=== PATIENT | female | born 1960 | race Caucasian/White ===

== ENCOUNTER → 2016-05-05 | Outpatient (CLI) | payer SELFPAY ==
--- NOTE | 2016-05-05 13:26 | XR ---
EXAMINATION TYPE: XR KUB DATE OF EXAM: 05/05/2016 1:12 PM COMPARISON: 05/24/2015 HISTORY: Pain, follow-up renal stone TECHNIQUE: One view abdominal series FINDINGS: The osseous structures are intact. The bowel gas pattern is nonspecific. Extensive retained fecal de bris. Right kidney: There remains a calcification overlying the right renal outline measuring 4 mm. Stable in position a nd size relative to the previous exam. Left kidney: There are 2 punctate 2 mm calcifications overlying the upper pole region of the left kidney. Pelvis: There are stable appearing calcifications in the pelvis appear vascular. IMPRESSION: 1. Nonspecific abdomen. 2. Stable 4 mm right renal calculus.
== END | disposition home or self-care (01) ==
LOC: RADXRMAIN 12:57
PROVIDERS: ATTEND Urology
DX: N20.0 Calculus of kidney (principal)
CPT/HCPCS: 74000

== ENCOUNTER 2016-11-20 14:32 | Observation (INO) | payer OTHER ==
[2016-11-20] MEDS ORDERED: LORazepam 2 MG/ML SYRINGE IV STA (15:10)
--- NOTE | 2016-11-20 15:14 | ED ---
General Adult HPI - General Source: patient, family, EMS, RN notes reviewed Mode of arrival: EMS Limitations: altered mental status <Jeffrey Gann - Last Filed: 11/20/16 16:42> <Rodger Khan - Last Filed: 11/20/16 18:51> - General Chief complaint: Altered Mental Status Stated complaint: Short Term Memory Loss Time Seen by Provider: 11/20/16 15:04 - History of Present Illness Initial comments: Patient is a pleasant 56-year-old female presenting to the emergency department complaining of memory problems. Patient states she does not recall majority of the day. No history of similar symptoms previously. Patient does admit to being under increased stress recently. Daughter adds patient was last seen well around 1220. When she spoke with her on the phone patient was answering questions similar to today. Normally patient does know what year it is. No headaches. No isolated area of weakness. (Jeffrey Gann) - Related Data Home Medications Medication Instructions Recorded Confirmed Biotin 5 mg PO DAILY 11/20/16 11/20/16 Estrogen,Con/M-Progest Acet 0.5 tab PO DAILY 11/20/16 11/20/16 [Prempro 0.3 mg-1.5 mg Tablet] Fluticasone Nasal [place] [Flonase 2 spr EA NOSTRIL DAILY 11/20/16 11/20/16 Nasal [place]] Montelukast [Singulair] 10 mg PO DAILY 11/20/16 11/20/16 Ubidecarenone [Co Q-10] 100 mg PO DAILY 11/20/16 11/20/16 Allergies Allergy/AdvReac Type Severity Reaction Status Date / Time No Known Allergies Allergy Verified 11/20/16 14:41 Review of Systems ROS Other: All systems not noted in ROS Statement are negative. Constitutional: Denies: fever Eyes: Denies: eye pain ENT: Denies: ear pain Respiratory: Denies: cough Cardiovascular: Denies: chest pain Endocrine: Denies: fatigue Gastrointestinal: Denies: abdominal pain Genitourinary: Denies: dysuria Musculoskeletal: Denies: back pain Skin: Denies: rash Neurological: Denies: headache, weakness <Jeffrey Gann - Last Filed: 11/20/16 16:42> ROS Other: All systems not noted in ROS Statement are negative. <Rodger Khan - Last Filed: 11/20/16 18:51> ROS Statement: Those systems with pertinent positive or pertinent negative responses have been documented in the HPI. Past Medical History Past Medical History: Hypertension History of Any Multi-Drug Resistant Organisms: None Reported Past Surgical History: Bladder Surgery Past Psychological History: No Psychological Hx Reported Smoking Status: Current every day smoker Past Alcohol Use History: Occasional Past Drug Use History: None Reported <Jeffrey Gann - Last Filed: 11/20/16 16:42> General Exam Limitations: altered mental status General appearance: alert, in no apparent distress Head exam: Present: atraumatic, normocephalic Eye exam: Present: normal appearance, PERRL, EOMI. Absent: nystagmus ENT exam: Present: normal oropharynx Neck exam: Present: normal inspection Respiratory exam: Present: normal lung sounds bilaterally Cardiovascular Exam: Present: regular rate, normal rhythm GI/Abdominal exam: Present: soft. Absent: tenderness Extremities exam: Present: normal inspection. Absent: pedal edema, calf tenderness Neurological exam: Present: alert, CN II-XII intact. Absent: motor sensory deficit Expanded Patient oriented to: Present: person, place. Absent: time (Patient does know that is the last day of October however states the year is 2015) Speech: Present: fluid speech Cranial nerves: EOM's Intact: Normal, Facial Sensation: Normal Cerebellar function: Finger to Nose: Normal Sensory exam: Upper Extremity Light Touch: Normal, Lower Extremity Light Touch: Normal Motor strength exam: RUE: 5, LUE: 5, RLE: 5, LLE: 5 Psychiatric exam: Present: normal affect, normal mood Skin exam: Present: normal color <Jeffrey Gann Last Filed: 11/20/16 16:42> EKG Findings - EKG Comments: EKG Findings:: Normal sinus rhythm at 70. LA 1. Tourette's 90. QT 378. QTC 408. Normal axis. Normal QRS. Nonspecific T waves. <Jeffrey Gann Last Filed: 11/20/16 16:42> Medical Decision Making - Lab Data Result diagrams: 11/20/16 14:54 11/20/16 14:54 - Radiology Data Radiology results: image reviewed (Computed tomography scan shows no acute cranial process. Two-view chest x-ray shows abnormal appearance of upper mediastinum.) <Jeffrey Gann Last Filed: 11/20/16 16:42> - Lab Data Result diagrams: 11/20/16 14:54 11/20/16 14:54 <Rodger Khan - Last Filed: 11/20/16 18:51> - Medical Decision Making 56 yo female signed out from the previous physician at shift change. Patient presented for episode of confusion and amnesia. She is currently going through a divorce. She is unable to recall the events today. Was unable to recall speaking with her daughter which occurred at 1220. This was when she was last seen normal. She had no focal neurological findings on examination. I did reevaluate the patient multiple times while in the emergency department she did not develop any neurological findings. She continued to have difficulty recalling these events but she was beginning to remember. Chest x-ray did show wide mediastinum. CT was obtained at the time of sign out. 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 I did discuss with cardiothoracic surgery on-call Dr. Skelton and there is no urgent need for evaluation. Patient may follow-up as an outpatient regarding this finding. Given the measurement of 3.5 cm he did not believe this was an aneurysm by definition. CT of the head showed no acute intracranial process. Laboratory studies including CBC, CMP, urinalysis and urine drug screen are unremarkable. Patient will be placed in observation for neurology evaluation. Patient did receive an aspirin in the emergency department. Diagnosis: Confusion and amnesia. (Rodger Khan) - Lab Data Lab Results 11/20/16 11/20/16 11/20/16 Range/Units 14:54 14:54 14:54 WBC 7.0 (3.8-10.6) k/uL RBC 4.17 (3.80-5.40) m/uL Hgb 13.6 (11.4-16.0) gm/dL Hct 39.8 (34.0-46.0) % MCV 95.4 (80.0-100.0) fL MCH 32.7 (25.0-35.0) pg MCHC 34.2 (31.0-37.0) g/dL RDW 13.0 (11.5-15.5) % Plt Count 234 (150-450) k/uL Neutrophils % 64 % Lymphocytes % 26 % Monocytes % 7 % Eosinophils % 1 % Basophils % 0 % Neutrophils # 4.5 (1.3-7.7) k/uL Lymphocytes # 1.8 (1.0-4.8) k/uL Monocytes # 0.5 (0-1.0) k/uL Eosinophils # 0.1 (0-0.7) k/uL Basophils # 0.0 (0-0.2) k/uL PT (9.0-12.0) sec INR (<1.2) APTT (22.0-30.0) sec Sodium 141 (137-145) mmol/L Potassium 4.0 (3.5-5.1) mmol/L Chloride 106 (98-107) mmol/L Carbon Dioxide 24 (22-30) mmol/L Anion Gap 11 mmol/L BUN 19 H (7-17) mg/dL Creatinine 0.80 (0.52-1.04) mg/dL Est GFR (MDRD) Af Amer >60 (>60 ml/min/1.73 sqM) Est GFR (MDRD) Non-Af >60 (>60 ml/min/1.73 sqM) Glucose 70 L (74-99) mg/dL Calcium 9.3 (8.4-10.2) mg/dL Total Bilirubin 0.6 (0.2-1.3) mg/dL AST 31 (14-36) U/L ALT 34 (9-52) U/L Alkaline Phosphatase 98 (38-126) U/L Total Creatine Kinase 364 H (30-135) U/L CK-MB (CK-2) 3.5 H* (0.0-2.4) ng/mL CK-MB (CK-2) Rel Index 1.0 Troponin I <0.012 (0.000-0.034) ng/mL Total Protein 7.0 (6.3-8.2) g/dL Albumin 4.5 (3.5-5.0) g/dL Urine Color Urine Appearance (Clear) Urine pH (5.0-8.0) Ur Specific [place] (1.001-1.035) Urine Protein (Negative) Urine Glucose (UA) (Negative) Urine Ketones (Negative) Urine Blood (Negative) Urine Nitrite (Negative) Urine Bilirubin (Negative) Urine Urobilinogen (<2.0) mg/dL Ur Leukocyte Esterase (Negative) Urine Opiates Screen (NotDetected) Ur Oxycodone Screen (NotDetected) Urine Methadone Screen (NotDetected) Ur Propoxyphene Screen (NotDetected) Ur Barbiturates Screen (NotDetected) U Tricyclic Antidepress (NotDetected) Ur Phencyclidine Scrn (NotDetected) Ur Amphetamines Screen (NotDetected) U Methamphetamines Scrn (NotDetected) U Benzodiazepines Scrn (NotDetected) Urine Cocaine Screen (NotDetected) U Marijuana (THC) Screen (NotDetected) 11/20/16 11/20/16 Range/Units 14:54 14:54 WBC (3.8-10.6) k/uL RBC (3.80-5.40) m/uL Hgb (11.4-16.0) gm/dL Hct (34.0-46.0) % MCV (80.0-100.0) fL MCH (25.0-35.0) pg MCHC (31.0-37.0) g/dL RDW (11.5-15.5) % Plt Count (150-450) k/uL Neutrophils % % Lymphocytes % % Monocytes % % Eosinophils % % Basophils % % Neutrophils # (1.3-7.7) k/uL Lymphocytes # (1.0-4.8) k/uL Monocytes # (0-1.0) k/uL Eosinophils # (0-0.7) k/uL Basophils # (0-0.2) k/uL PT 10.4 (9.0-12.0) sec INR 1.0 (<1.2) APTT 24.0 (22.0-30.0) sec Sodium (137-145) mmol/L Potassium (3.5-5.1) mmol/L Chloride (98-107) mmol/L Carbon Dioxide (22-30) mmol/L Anion Gap mmol/L BUN (7-17) mg/dL Creatinine (0.52-1.04) mg/dL Est GFR (MDRD) Af Amer (>60 ml/min/1.73 sqM) Est GFR (MDRD) Non-Af (>60 ml/min/1.73 sqM) Glucose (74-99) mg/dL Calcium (8.4-10.2) mg/dL Total Bilirubin (0.2-1.3) mg/dL AST (14-36) U/L ALT (9-52) U/L Alkaline Phosphatase (38-126) U/L Total Creatine Kinase (30-135) U/L CK-MB (CK-2) (0.0-2.4) ng/mL CK-MB (CK-2) Rel Index Troponin I (0.000-0.034) ng/mL Total Protein (6.3-8.2) g/dL Albumin (3.5-5.0) g/dL Urine Color Colorless Urine Appearance Clear (Clear) Urine pH 6.5 (5.0-8.0) Ur Specific [place] 1.001 (1.001-1.035) Urine Protein Negative (Negative) Urine Glucose (UA) Negative (Negative) Urine Ketones Negative (Negative) Urine Blood Negative (Negative) Urine Nitrite Negative (Negative) Urine Bilirubin Negative (Negative) Urine Urobilinogen <2.0 (<2.0) mg/dL Ur Leukocyte Esterase Negative (Negative) Urine Opiates Screen Not Detected (NotDetected) Ur Oxycodone Screen Not Detected (NotDetected) Urine Methadone Screen Not Detected (NotDetected) Ur Propoxyphene Screen Not Detected (NotDetected) Ur Barbiturates Screen Not Detected (NotDetected) U Tricyclic Antidepress Not Detected (NotDetected) Ur Phencyclidine Scrn Not Detected (NotDetected) Ur Amphetamines Screen Not Detected (NotDetected) U Methamphetamines Scrn Not Detected (NotDetected) U Benzodiazepines Scrn Not Detected (NotDetected) Urine Cocaine Screen Not Detected (NotDetected) U Marijuana (THC) Screen Not Detected (NotDetected) Disposition <Jeffrey Gann - Last Filed: 11/20/16 16:42> Decision to Admit Reason: Admit from EC Decision Date: 11/20/16 Decision Time: 16:50 <Rodger Khan - Last Filed: 11/20/16 18:51> Clinical Impression: Altered mental status Disposition: ADMITTED IP TO THIS [facility] Condition: Stable Referrals: Kasey Garcia MD [Primary Care Provider] - 1-2 days
[2016-11-20 15:23] LABS: Appearance,Urine Clear (Clear); Bilirubin,Urine Negative (Negative); Glucose,Urine (UA) Negative (Negative); Ketones,Urine Negative (Negative); Leukocyte Esterase,Urine Negative (Negative); Nitrite,Urine Negative (Negative); PH, Urine 6.5 (5.0-8.0); Protein,Urine Negative (Negative); Specific Gravity,Urine 1.001 (1.001-1.035); UA Billing (MACRO vs. MICRO) CHEM; Urobilinogen,Urine <2.0 mg/dL (<2.0)
[2016-11-20 15:25] LABS: Basophils % (A) 0 %; CH 31.8; CHCM 33.5; Eosinophils # (A) 0.1 k/uL (0-0.7); Eosinophils % (A) 1 %; HCT 39.8 % (34.0-46.0); HDW 2.19; HGB 13.6 gm/dL (11.4-16.0); Luc # (Auto) 0.13; Luc % (Auto) 2; Lymphocytes # (A) 1.8 k/uL (1.0-4.8); Lymphocytes % (A) 26 %; MCH 32.7 pg (25.0-35.0); MCHC 34.2 g/dL (31.0-37.0); MCV 95.4 fL (80.0-100.0); Mean Platelet Volume 7.1; Monocytes # (A) 0.5 k/uL (0-1.0); Monocytes % (A) 7 %; Neutrophils # (A) 4.5 k/uL (1.3-7.7); Neutrophils % (A) 64 %; RBC 4.17 m/uL (3.80-5.40); WBC (Perox) 6.99
[2016-11-20 15:31] LABS: ALT 34 U/L (9-52); AST 31 U/L (14-36); Alkaline Phosphatase 98 U/L (38-126); Anion Gap 11 mmol/L; Blood Urea Nitrogen 19 mg/dL (7-17); Calcium 9.3 mg/dL (8.4-10.2); Carbon Dioxide 24 mmol/L (22-30); Chloride 106 mmol/L (98-107); Glucose 70 mg/dL (74-99); Non-African American GFR(MDRD) >60 (>60 ml/min/1.73 sqM); Sodium 141 mmol/L (137-145); Total Bilirubin 0.6 mg/dL (0.2-1.3)
--- NOTE | 2016-11-20 15:37 | CT ---
EXAMINATION TYPE: CT brain wo con DATE OF EXAM: 11/20/2016 COMPARISON: NONE HISTORY: Short term memory loss. CT DLP: 993.2 mGycm Automated exposure control for dose reduction was used. FINDINGS: Central structures are midline. There is no evidence of hydrocephalus. No acute focal lesion, mass ef fect or midline shift is seen. I do not see evidence of intracranial blood. There has been a previous Coldwell Asael procedure on the right. There is been a partial anterior ethmo idectomy. The mastoid air cells are clear. IMPRESSION: 1. NO ACUTE INTRACRANIAL ABNORMALITY. 2. POSTSURGICAL CHANGE.
--- NOTE | 2016-11-20 15:38 | XR ---
EXAMINATION TYPE: XR chest 2V DATE OF EXAM: 11/20/2016 COMPARISON: NONE TECHNIQUE: PA and lateral views submitted. HISTORY: Altered mental status. FINDINGS: The lungs are clear and there is no pneumothorax, pleural effusion, or focal pneumonia. There is ab normal appearance of the upper mediastinum. Degenerative change change of the spine. IMPRESSION: 1. Abnormal appearance of the upper mediastinum rate may reflect a right-sided aortic arch with ectas ia of the vasculature on the left. Recommend CT of the chest for further evaluation. Could not exclud e adenopathy or mass without CAT scan. 2. Correlate for COPD
[2016-11-20 15:40] LABS: Prothrombin Time 10.4 sec (9.0-12.0)
[2016-11-20 15:44] LABS: Creatine Kinase 364 U/L (30-135)
[2016-11-20 15:56] LABS: Troponin I <0.012 ng/mL (0.000-0.034)
[2016-11-20 15:58] LABS: Creatine Kinase MB 3.5 ng/mL (0.0-2.4)
[2016-11-20] MEDS ORDERED: RX INFO: IV CONTRAST WAS GIVEN 1 EACH MISC MISCELLANE PRN (16:30)
[2016-11-20] MEDS ORDERED: ASPIRIN 325 MG TAB PO STA (17:06)
--- NOTE | 2016-11-20 17:21 | CT ---
EXAMINATION TYPE: CT chest w con DATE OF EXAM: 11/20/2016 COMPARISON: NONE HISTORY: Abnormal chest xray. CT DLP: 590.00 mGycm Automated exposure control for dose reduction was used. CONTRAST: CT scan of the chest is performed with IV Contrast, patient injected with 100 mL of Omnipaque 300. FINDINGS: There is a right-sided aortic arch. There is mild aneurysm of the aortic arch involving the proximal descending thoracic aorta. This measures 3.5 cm. There is aberrant left subclavian artery which is po sterior to the trachea. There is no evidence of aortic dissection. The lungs are clear of consolidation. There is no mediastinal adenopathy. Heart size is normal. There is no pleural effusion. There is no evidence of a pulmonary mass. The bony thorax appears intact. 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 No dissection.
[2016-11-20] MEDS ORDERED: NALOXONE 0.4 MG/ML 1 ML VIAL IV PRN (18:47)
[2016-11-20] MEDS ORDERED: ACETAMINOPHEN TAB 325 MG TAB PO PRN (18:47)
[2016-11-20] MEDS ORDERED: ONDANSETRON 4 MG/2 ML VIAL IVP PRN (18:47)
[2016-11-20] MEDS ORDERED: HYDROCHLOROTHIAZIDE 25 MG TAB PO SCH (19:00)
[2016-11-20 20:31] LABS: Glucose,Whole Blood 96 mg/dL (75-99)
[2016-11-20] MEDS: HYDROCHLOROTHIAZIDE 25 MG TAB PO SCH (23:42)
[2016-11-21] MEDS: ASPIRIN 81 MG PO SCH (08:37)
[2016-11-21] MEDS: HYDROCHLOROTHIAZIDE 25 MG TAB PO SCH ×2 (08:37→19:57)
[2016-11-21] MEDS: FLUTICASONE 50MCG/SPRAY NASAL 16GM EA NOSTRIL SCH (08:38)
[2016-11-21] MEDS: ENOXAPARIN 40 MG/0.4 ML SYRINGE SQ SCH (08:38)
[2016-11-21] MEDS ORDERED: ESTROGEN CON PO SCH (09:00)
[2016-11-21] MEDS ORDERED: MONTELUKAST 10 MG TAB PO SCH (09:00)
[2016-11-21] MEDS ORDERED: M PROGEST ACET PO SCH (09:00)
[2016-11-21] MEDS ORDERED: ASPIRIN 325 MG TAB PO SCH (09:00)
[2016-11-21 13:31] LABS: Cholesterol 198 mg/dL (<200); HDL Cholesterol 101 mg/dL (40-60)
--- NOTE | 2016-11-21 14:07 | US ---
EXAMINATION TYPE: US carotid duplex BILAT DATE OF EXAM: 11/21/2016 COMPARISON: NONE CLINICAL HISTORY: tia. TIA EXAM MEASUREMENTS: RIGHT: Peak Systolic Velocity (PSV) cm/sec ----- Right CCA: 58.1 ----- Right ICA: 69.7 ----- Right ECA: 78.2 ICA/CCA ratio: 1.2 RIGHT: End Diastole cm/sec ----- Right CCA: 25.8 ----- Right ICA: 35.4 ----- Right ECA: 23.6 LEFT: Peak Systolic Velocity (PSV) cm/sec ----- Left CCA: 62.5 ----- Left ICA: 66.0 ----- Left ECA: 88.1 ICA/CCA ratio: 1.1 LEFT: End Diastole cm/sec ----- Left CCA: 24.1 ----- Left ICA: 31.7 ----- Left ECA: 24.2 VERTEBRALS (direction of flow): Right Vertebral: Antegrade Left Vertebral: Antegrade No elevated velocities, no significant stenosis. IMPRESSION: 1. No significant hemodynamic stenosis. 2. Intimal thickening bilaterally small focal areas of plaque.
--- NOTE | 2016-11-21 20:28 | P.HPIM ---
History of Present Illness H&P Date: 11/20/16 Chief Complaint: Acute mental status changes/amnesia This is a 56-year-old female patient of Dr. Kasey Garcia who presented to the emergency department with mental status changes/memory problems. Patient does not recall a good portion of the day. Patient remembers sporadic events but does not remember the sequence of events throughout the day. States she remembers getting up but can't remember if she had coffee, does not recall going to work out or what she did while she was there. Acknowledges being under increased stress recently, daughter at the bedside who lives with her, states last time that she appeared well was 1220 this afternoon. Review of Systems GEN.: [None] EYES: [None] HEENT: [None] NECK: [None] RESPIRATORY: [None] CARDIOVASCULAR: [None] GASTROINTESTINAL: [None] GENITOURINARY: [None] MUSCULOSKELETAL: [None] LYMPHATICS: [None] HEMATOLOGICAL: [None] PSYCHIATRY: [None] NEUROLOGICAL: [None] Past Medical History Past Medical History: Hypertension History of Any Multi-Drug Resistant Organisms: None Reported Past Surgical History: Bladder Surgery Additional Past Surgical History / Comment(s): bladder sling in september 2016, tummy lettyck Past Anesthesia/Blood Transfusion Reactions: No Reported Reaction Past Psychological History: No Psychological Hx Reported Smoking Status: Never smoker Past Alcohol Use History: Occasional Past Drug Use History: None Reported - Past Family History Mother Family Medical History: No Reported History Father Additional Family Medical History / Comment(s): ALS, FUCHS EYE DISEASE Sister(s) Family Medical History: No Reported History Daughter(s) Family Medical History: Thyroid Disorder Medications and Allergies Home Medications Medication Instructions Recorded Confirmed Type Biotin 5 mg PO DAILY 11/20/16 11/20/16 History Estrogen,Con/M-Progest Acet 0.5 tab PO DAILY 11/20/16 11/20/16 History [Prempro 0.3 mg-1.5 mg Tablet] Fluticasone Nasal [place] [Flonase 2 spr EA NOSTRIL DAILY 11/20/16 11/20/16 History Nasal [place]] Montelukast [Singulair] 10 mg PO DAILY 11/20/16 11/20/16 History Ubidecarenone [Co Q-10] 100 mg PO DAILY 11/20/16 11/20/16 History Allergies Allergy/AdvReac Type Severity Reaction Status Date / Time house dust mite AdvReac Cough Verified 11/20/16 19:49 mold AdvReac Cough Verified 11/20/16 19:49 yeast, dried AdvReac Cough Verified 11/20/16 19:49 Physical Exam Vitals: Vital Signs Temp Pulse Pulse Resp BP BP Pulse Ox 11/20/16 20:00 98.2 F 64 18 152/101 98 11/20/16 19:18 97.4 F L 68 17 116/102 99 11/20/16 18:35 80 17 157/109 99 11/20/16 17:13 70 17 153/106 99 11/20/16 15:33 69 17 169/99 100 11/20/16 14:34 97.6 F 73 18 161/96 100 Intake and Output 11/20/16 11/20/16 11/20/16 06:59 14:59 22:59 Other: Voiding Method Toilet Weight 63.503 kg Patient Weight 11/21/16 06:59 Weight 63.503 kg VITAL SIGNS. Temperature 98.2, pulse 64, respiratory rate 18, blood pressure 152/101, oxygen saturation 98% on room air. BMI noted] GENERAL: [Average built, sitting up, comfortable]. EYES: [Pupils equal. Conjunctiva katia]l. HEENT: [External appearance of nose and ears normal, oral cavity grossly normal] . NECK: [JVD not raised; masses not palpable]. HEART: [First and second heart sounds are normal; no edema]. LUNGS:[ Respiratory rate normal; clear to auscultation]. ABDOMEN: [Soft, nontender, liver spleen not palpable, no masses palpable]. LYMPHATICS: [No lymph nodes palpable in the axilla and neck]. PSYCH: [Alert and oriented x3; mood and affect katia]l. NEUROLOGICAL: [Cranial nerves grossly intact; no facial asymmetry, power and sensation grossly intact]. Results CBC & Chem 7: 11/20/16 14:54 11/20/16 14:54 Labs: Abnormal Lab Results - Last 24 Hours (Table) 11/20/16 11/20/16 Range/Units 14:54 14:54 BUN 19 H (7-17) mg/dL Glucose 70 L (74-99) mg/dL Total Creatine Kinase 364 H (30-135) U/L CK-MB (CK-2) 3.5 H* (0.0-2.4) ng/mL Thrombosis Risk Factor Assmnt - Choose All That Apply Each Factor Represents 1 point: Age 41-60 years Other Risk Factors: No Other congenital or acquired thrombophilia - If yes, enter type in comment: No Thrombosis Risk Factor Assessment Total Risk Factor Score: 1 Thrombosis Risk Factor Assessment Level: Low Risk Assessment and Plan Plan: ASSESSMENT: -Altered mental status in a patient who has no prior history of memory troubles -Proximal descending thoracic aortic aneurysm measuring 3.5 cm in a patient who has no evidence of aortic dissection or any pain. -Essential hypertension, uncontrolled -Anxiety not otherwise specified -Seasonal ALLERGIES PLAN: Home medications reordered, neuro checks every 4 hours, telemetry monitoring. neurology consulted plan of care discussed at the bedside in detail with both daughters and the patient and they are in agreement with the current plan of care. We will continue to monitor closely PROCEDURES NURSE STATEMENT: Patient was seen and examined by nurse practitioner Mary Ann Ospina in all elements of the case were discussed with attending Dr. Almeida.
--- NOTE | 2016-11-21 21:06 | P.PN ---
Progress Note - Text Date of service: 11/21/2016 Presenting complaint: Episodes of forgetfulness Interval history this is a patient who presented with several episodes of forgetfulness yesterday and could not put things together poorly. On further questioning patient is rather stressful does not sleep well she is very active and doesn't sleep much. Patient does feel tired and exhausted all the time. Patient had denied any change in vision no focal symptoms, no lateralized weakness no difficulty in swallowing,. Current medications reviewed and include aspirin Review of system is done for constitutional,, cardiovascular, pulmonary, GI, neurological. Relevant finding as above. VITAL SIGNS: 98.1, 58, 16, 145-98, 98% room air GENERAL APPEARANCE: Average build. Sitting up in chair, rather anxious appearing, otherwise comfortable. EYES: Pupils equal. Conjunctiva normal. NECK: JVD not raised. Mass not palpable. RESPIRATORY: Respiratory effort normal. Lungs clear to auscultation. CARDIOVASCULAR: First and second sounds normal. No edema. ABDOMEN: Soft. Liver and spleen not palpable. No tenderness. No mass palpable. PSYCHIATRY: Alert and oriented x3. Mood and affect anxious appearing. Investigations: CT chest shows 3.5 cm aneurysm of the Aorta arch Assessment: -Muscle of transient global amnesia which is more flaco to a TIA with the same risk factor modification in this case patient has hypertension and patient had told me that she stopped taking her diuretic for the same that his hydrochlorothiazide. -Anxiety disorder not otherwise specified somewhat uncontrolled -Significant sleep deprivation leading to tiredness and to certain degree could be a contribution to her symptoms. Plan: Neurology was consulted. EEG is being ordered by them. I did order 2-D echo and a carotid Doppler. Lipid profile has been ordered. Patient was told to follow mindfulness and improve her sleep hygiene care was discussed at length with the patient and daughter. And also with Harman from neurology. Total time spent was about 40 minutes including 30 minutes of discussion
--- NOTE | 2016-11-22 01:08 | P.CNNES ---
History of Present Illness Consult date: 11/21/16 Requesting physician: Rodger Khan Reason for Consult: Amnesia/memory loss Chief complaint: amnesia/memory loss History of Present Illness: Patient is a 56-year-old female is being consulted on by neurology for amnesia/ memory loss. Patient experienced an episode of memory loss that encompassed half of her day yesterday where she could not connect events, prior conversations, interactions with family and loved ones and prior personal activities. Memory loss was confined to the one day. Patient has been under significant psychological and emotional stress as result of a recent divorce that has been characterized as quite difficult. Patient is also under further stressors as a result of numerous family functions and physical demands. Patient does have a history of a very rigid and structured home. On contact, the patient was supine in bed resting and in no acute distress with her daughter at the bedside. Patient is on Lexapro which she admits she takes intermittently. She also admits that she restarted her exercise regimen within the last several days and expressed difficulty with her physical appearance. Patient also has not been taking her hypertension related medications as prescribed as well. Patient denied any neurological symptoms, weakness, difficulty swallowing, numbness and tingling, diplopia or vertigo. Patient did appear somewhat anxious. Review of Systems All systems not previously noted in HPI or negative. Past Medical History Past Medical History: Hypertension History of Any Multi-Drug Resistant Organisms: None Reported Past Surgical History: Bladder Surgery Additional Past Surgical History / Comment(s): bladder sling in september 2016, tummy lettyck Past Anesthesia/Blood Transfusion Reactions: No Reported Reaction Past Psychological History: No Psychological Hx Reported, Depression Smoking Status: Never smoker Past Alcohol Use History: Occasional Past Drug Use History: None Reported Additional History: history of depression. - Past Family History Mother Family Medical History: No Reported History Father Additional Family Medical History / Comment(s): ALS, FUCHS EYE DISEASE Sister(s) Family Medical History: No Reported History Daughter(s) Family Medical History: Thyroid Disorder Medications and Allergies Home Medications Medication Instructions Recorded Confirmed Type Biotin 5 mg PO DAILY 11/20/16 11/20/16 History Estrogen,Con/M-Progest Acet 0.5 tab PO DAILY 11/20/16 11/20/16 History [Prempro 0.3 mg-1.5 mg Tablet] Fluticasone Nasal [place] [Flonase 2 spr EA NOSTRIL DAILY 11/20/16 11/20/16 History Nasal [place]] Montelukast [Singulair] 10 mg PO DAILY 11/20/16 11/20/16 History Ubidecarenone [Co Q-10] 100 mg PO DAILY 11/20/16 11/20/16 History Allergies Allergy/AdvReac Type Severity Reaction Status Date / Time house dust mite AdvReac Cough Verified 11/20/16 19:49 mold AdvReac Cough Verified 11/20/16 19:49 yeast, dried AdvReac Cough Verified 11/20/16 19:49 Physical Examination - Vital Signs Vital Signs: Vital Signs Temp Pulse Resp BP Pulse Ox 11/21/16 23:32 70 18 113/75 98 11/21/16 19:59 18 11/21/16 19:39 98.1 F 58 L 18 145/98 98 11/21/16 16:00 69 16 11/21/16 15:57 98.1 F 69 16 139/95 96 11/21/16 12:00 98.4 F 72 18 118/74 97 11/21/16 08:00 64 16 11/21/16 07:55 98.3 F 64 16 122/96 98 11/21/16 04:00 98 F 56 L 18 132/90 99 11/21/16 03:28 18 Intake and Output 11/21/16 11/21/16 11/22/16 14:59 22:59 06:59 Intake Total 476 440 Balance 476 440 Intake: Oral 476 440 Other: Voiding Method Toilet Toilet # Voids 3 1 Constitutional: AOx3, cooperative HEENT: NC/AT, no facial asymmetry is seen. Throat: Supple, no masses Respiratory: No increased work of breathing Cardiac: Regular rate and Rhythm GI: non tender, non distended Musculoskeletal: Brake Specialist strengths are equal bilaterally 5/5, Lower extremity strengths are equal bilaterally at 5/5. Neurological: CN II-XII in tact, patient was AOx3, speech and language are normal, no unilateralizing weakness, no seizure activity note on physical exam. Sensation was normal. Integementary: no rash, no erythema Psychiatric: mood and affect appropriate Results - Laboratory Findings CBC and BMP: 11/20/16 14:54 11/20/16 14:54 Abnormal Lab Findings: Abnormal Labs 11/20/16 11/20/16 11/20/16 14:54 14:54 14:54 BUN 19 H Glucose 70 L Total Creatine Kinase 364 H CK-MB (CK-2) 3.5 H* HDL Cholesterol 101 H - Diagnostic Findings Additional findings: CT brain was negative with the exception of an ethmoid sinus related procedure. No acute process found. Carotid Doppler noted no hemodynamically significant stenosis. EEG will be ordered MRI of the brain with and without contrast will also be ordered Assessment and Plan (1) Transient global amnesia Status: Acute (2) Altered mental status Status: Acute Plan: transient global amnesia/rule out TIA: Patient's symptoms are consistent with both TIA and transient global amnesia. Patient does have multiple stressors, has isolated loss of time and memory. Patient has had significant life related events related to her divorce, daughter graduating from medical school, desire to improve her physical appearance. At this time the patient's symptoms do appear more related to TGA versus TIA, however we will request an MRI of the brain with and without contrast and an EEG. As noted previously the CT of the brain as well as the carotid Doppler study were all unremarkable for patient's symptoms. Patient will continue 81 mg aspirin. Lipid panel: only abnormal was elevated HDL at 101. Additional lab work ordered to include:TSH: Folate, B12, serum homocystine , vitamin D levels to investigate any other underlying etiology. status: Neurology will continue to follow provide further updates as needed or warranted. Contact our office with any further questions. I discussed the patient's pertinent medical information with Dr. Richardson. He agrees with the plan of care as implemented.
[2016-11-22] MEDS: HYDROCHLOROTHIAZIDE 25 MG TAB PO SCH (08:44)
[2016-11-22] MEDS: FLUTICASONE 50MCG/SPRAY NASAL 16GM EA NOSTRIL SCH (08:44)
[2016-11-22] MEDS: ENOXAPARIN 40 MG/0.4 ML SYRINGE SQ SCH ×2 (08:45→08:46)
[2016-11-22] MEDS: ASPIRIN 81 MG PO SCH (08:45)
--- NOTE | 2016-11-22 09:14 | ECHOF ---
Referral Reason:tia MEASUREMENTS -------- HEIGHT: 157.5 cm WEIGHT: 63.5 kg BP: 122/96 RVIDd: 2.1 cm (< 3.3) IVSd: 0.9 cm (0.6 - 1.1) LVIDd: 4.1 cm (3.9 - 5.3) LVPWd: 0.9 cm (0.6 - 1.1) IVSs: 1.1 cm LVIDs: 3.2 cm LVPWs: 1.0 cm Ao Diam: 2.8 cm (2.0 - 3.7) AV Cusp: 1.8 cm (1.5 - 2.6) LA Diam: 2.4 cm (2.7 - 3.8) MV EXCURSION: 19.848 mm (> 18.000) MV EF SLOPE: 125 mm/s (70 - 150) EPSS: 0.6 cm MV E Jake: 0.67 m/s MV DecT: 250 ms MV A Jake: 0.86 m/s MV E/A Ratio: 0.79 RAP: 5.00 mmHg RVSP: 9.94 mmHg FINDINGS -------- Sinus rhythm. This was a technically adequate study. Overall left ventricular systolic function is normal with, an EF between 55 - 60 %. The right ventricle is normal in size and function. Normal LA size by volume 22+/-6 ml/m2. The right atrium is normal in size. Aortic valve is trileaflet and is mildly thickened. There is no evidence of aortic regurgitation. There is no evidence of aortic stenosis. The mitral valve leaflets are mildly thickened. There is trace mitral regurgitation. Trace tricuspid regurgitation present. There is no evidence of pulmonary hypertension. The right ventricular systolic pressure, as measured by Doppler, is 9.94mmHg. The pulmonic valve was not well visualized. The aortic root size is normal. Normal inferior vena cava with normal inspiratory collapse consistent with estimated right atrial pressure of 5 mmHg. The pericardium is normal. There is no pericardial effusion. CONCLUSIONS -------- 1. Sinus rhythm. 2. The right ventricular systolic pressure, as measured by Doppler, is 9.94mmHg. 3. The pulmonic valve was not well visualized. 4. The aortic root size is normal. 5. There is no pericardial effusion. 6. This was a technically adequate study. 7. Overall left ventricular systolic function is normal with, an EF between 55 - 60 %. 8. Normal LA size by volume 22+/-6 ml/m2. 9. Aortic valve is trileaflet and is mildly thickened. 10. The mitral valve leaflets are mildly thickened. 11. There is trace mitral regurgitation. 12. Trace tricuspid regurgitation present. 13. There is no evidence of pulmonary hypertension. DOCTOR OF PODIATRY: Gavin Ferrell RDCS
[2016-11-22 12:20] VITALS: RESP 16
--- NOTE | 2016-11-22 13:22 | MR ---
EXAMINATION TYPE: MR brain wo/w con DATE OF EXAM: 11/22/2016 COMPARISON: CT brain from 2 days earlier HISTORY: Amnesia and short-term memory loss per order., TECHNIQUE: Multiplanar, multisequence images of the brain and brainstem is performed without and with IV contras t, utilizing 6.5 mL intravenous Gadavist . FINDINGS: Diffusion weighted images demonstrate no evidence of a recent infarct or other diffusion ab normality. There is no extra-axial fluid collection or significant white matter signal abnormality. The ventricular system and cisternal spaces are normal in size and appearance. The brain volume is age appropriate. Midline structures demonstrate normal morphology. The craniocervical junction appears within normal limits. Post contrast images demonstrate no abnormal enhancement. The dural venous sinuses appear pa tent. The visualized sinuses are clear and the globes are intact. No suspicious fluid signal is seen in mastoid air cells bilaterally. IMPRESSION: No significant finding is seen to account for patient's symptoms.
[2016-11-22 16:08] VITALS: BP 124/85; PULSE 68; TEMP 98.7
--- NOTE | 2016-11-22 18:49 | P.DS ---
<Mary Ann Ospina - Last Filed: 11/22/16 18:35> Providers Date of admission: 11/20/16 18:50 Expected date of discharge: 11/22/16 Attending physician: Orlando Almeida Consults: 11/20/16 18:48 Consult Physician Urgent Consulting Provider: Gloria Richardson Consult Reason/Comments: Confusion and amnesia Do you want consulting provider notified?: Yes, Notify in am Primary care physician: Kasey Garcia Hospital Course: FINAL DIAGNOSES: -Episode of transient global amnesia which is more flaco to a TIA with the same risk factor modification in this case patient has hypertension and patient had told me that she stopped taking her diuretic for the same that is hydrochlorothiazide. -Anxiety disorder not otherwise specified somewhat uncontrolled -Significant sleep deprivation leading to tiredness and to certain degree could be a contribution to her symptoms. 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 Emergency Department diagnostics did not reveal any type of firm diagnosis however symptoms were concerning and Patient admitted to observation, neurology was consulted, EEG ordered , 2-D echo and carotid Doppler, lipid profile ordered. Computed tomography scan revealed an aortic arch aneurysm measuring 3.5 cm, this is a nonsignificant aneurysm, nothing to be done however it should be followed. Patient did not experience any further episodes of amnesia. Has had significant life events related to her daughter graduating from medical school desire to improve her appearance and these events may in fact precipitated this episode. Dr. Almeida introduced patient to mindfulness and discussed improving sleep hygiene. Testing at this juncture has not revealed any results other than elevated HDL at 101.. Patient tolerating her diet, ambulatory in the room and de jesus ways moving her bowels. Condition stable for patient to discharge home. PHYSICAL EXAM: CARDIOVASCULAR: First and second sounds noted no edema RESPIRATORY: Effort normal, lungs clear to auscultation NEUROLOGIC: Alert and oriented 3, mood and affect normal, power and sensation grossly intact Patient was seen and examined by nurse practitioner Mary Ann Ospina in all elements of the case discussed with attending Dr. Almeida DISPOSITION: Home to the care of her daughter Patient Condition at Discharge: Stable Plan - Discharge Summary New Discharge Prescriptions: New Aspirin 81 mg PO DAILY #0 Atorvastatin Calcium [Lipitor] 20 mg PO DAILY #30 tab Melatonin 3 mg PO HS #1 tablet Continue Montelukast [Singulair] 10 mg PO DAILY Fluticasone Nasal [place] [Flonase Nasal [place]] 2 spr EA NOSTRIL DAILY Estrogen,Con/M-Progest Acet [Prempro 0.3 mg-1.5 mg Tablet] 0.5 tab PO DAILY Discontinued Ubidecarenone [Co Q-10] 100 mg PO DAILY Biotin 5 mg PO DAILY Discharge Medication List Estrogen,Con/M-Progest Acet [Prempro 0.3 mg-1.5 mg Tablet] 0.5 tab PO DAILY [History] Fluticasone Nasal [place] [Flonase Nasal [place]] 2 spr EA NOSTRIL DAILY 11/20/16 [ History] Montelukast [Singulair] 10 mg PO DAILY 11/20/16 [History] Aspirin 81 mg PO DAILY #0 11/22/16 [Rx] Atorvastatin Calcium [Lipitor] 20 mg PO DAILY #30 tab 11/22/16 [Rx] Melatonin 3 mg PO HS #1 tablet 11/22/16 [Rx] Follow up Appointment(s)/Referral(s): Kasey Garcia MD [Primary Care Provider] - 1 Week Gloria Richardson MD [STAFF PHYSICIAN] - 1 Week Patient Instructions/Handouts: Altered Mental Status (GEN) Discharge Disposition: HOME SELF-CARE <Orlando Almeida - Last Filed: 11/22/16 22:10> Hospital Course: Attending note. Date of service-11/22/2016 This patient was seen and examined by me . Discussed the patient with my nurse practitioner Ms. Ospina. Stable. Up and about. On examination: Lungs are clear. Psych anxious appearing Investigations: MRI of the brain unremarkable Assessment and plan: Transient global amnesia/anxiety uncontrolled unspecified/severe sleep deprivation Care was discussed with the patient. We'll send the patient home on aspirin 81 mg Lipitor 20 mg. Patient was talked discussed with the patient sleep hygiene. Follow-up is arranged
[2016-11-22] MEDS ORDERED: MONTELUKAST 10 MG TAB PO SCH (21:00)
--- NOTE | 2016-11-23 01:48 | P.PN ---
Subjective Principal diagnosis: altered mental status November 22, 2016: Patient was seated in a bedside chair contact. Patient was alert and oriented 3. Patient states that she has had no neurological changes since previously examined yesterday. MRI results were discussed with patient. Lab results obtained to that point were also discussed. Lab results were normal and included laboratory blood work with the exception of vitamin D and folate. Patient was encouraged to keep a diary for use at follow-up office visit with regard to any symptoms, timing, activity and occurrence in any other information I could provide assistance in identifying any pattern that might emerge. Patient agreed to take all medications prescribed by providers as prescribed on a regular basis. EEG has been taken but not read. November 21, 2016: Patient is a 56-year-old female is being followed by neurology for altered mental statuslast memory loss. Patient has memory loss and accompanist half of her day 2 days ago where she could not connect events, prior conversations, interactions with family level and prior personal activities. Memory loss is confined to that 1 day. Patient has been under significant psychological and emotional stress as a result of recent divorce has been characterized as quite difficult. Patient is also under further stressors result of numerous family functions and physical demands. Patient does have a history of a very rigid and structured home. I contacted, patient was supine in bed resting and in no acute distress with her daughter at the bedside. Patient is on Lexapro which she admits she takes intermittently. She also admits that she restarted her exercise regimen within the last several days and expressed difficulty with her physical appearance. Patient also has not been taking her hypertension related medications as prescribed as well. Patient denied any neurological symptoms, weakness, difficulty swallowing, numbness, tingling, diplopia or vertigo. Patient did appear somewhat anxious.. Objective - Vital Signs Vital signs: Vital Signs Temp 98.7 F 11/22/16 16:00 Pulse 68 11/22/16 16:00 Resp 16 11/22/16 16:00 BP 124/85 11/22/16 16:00 Pulse Ox 98 11/22/16 16:00 Intake & Output 11/22/16 11/22/16 11/23/16 06:59 18:59 06:59 Intake Total 200 Balance 200 Intake: Oral 200 Other: Voiding Method Toilet Toilet # Voids 2 - Exam Constitutional: AOx3, cooperative HEENT: NC/AT, no facial asymmetry is seen. Throat: Supple, no masses Respiratory: No increased work of breathing Cardiac: Regular rate and Rhythm GI: non tender, non distended Musculoskeletal: Box Stacker strengths are equal bilaterally 5/5, Lower extremity strengths are equal bilaterally at 5/5. Neurological: CN II-XII in tact, patient was AOx3, speech and language are normal, no unilateralizing weakness, no seizure activity note on physical exam. Sensation was normal. Integementary: no rash, no erythema Psychiatric: mood and affect appropriate - Labs CBC & Chem 7: 11/20/16 14:54 11/20/16 14:54 Labs: Abnormal Lab Results - Last 24 Hours (Table) 11/22/16 Range/Units 06:20 Vitamin D 25-Hydroxy 22.6 L (30.0-100.0) ng/mL Assessment and Plan (1) Transient global amnesia Status: Acute (2) Altered mental status Status: Acute Plan: Transient global amnesia/rule out TIA: Patient's symptoms are consistent with both TIA and transient global amnesia. Patient does have multiple stressors, has isolated loss of time and memory. Patient has had significant life related events related to her divorce, daughter graduating from medical school, desire to improve her physical appearance. At this time the patient's symptoms do appear more related to TGA versus TIA. MRI of the brain with and without contrast was unremarkable and an EEG was taken and not read. As noted previously the CT of the brain as well as the carotid Doppler study were all unremarkable for patient's symptoms. Patient will continue 81 mg aspirin. Lipid panel: only abnormal was elevated HDL at 101. Additional lab work ordered to include:TSH: Folate, B12, serum homocystine, vitamin D levels to investigate any other underlying etiology head results within normal limits with the exception of folate and vitamin D which have yet to be received.. status: Neurology [place] the patient from a neurological standpoint for discharge. Patient is advised to contact our office within 10-14 days for follow-up in the office. Contact our office with any further questions. I discussed the patient's pertinent medical information with Dr. Richardson. He agrees with the plan of care as implemented.
--- NOTE | 2016-11-26 07:47 | EEG ---
ELECTROENCEPHALOGRAM REPORT DATE OF SERVICE: 11/22/2016. REASON TESTING: Altered mental status. PROCEDURE: This EEG was performed using a 21 channel digital electroencephalograph, following international 10-20 system. DESCRIPTION OF THE RECORDING: From the beginning of the tracing, with patient's eyes closed, the background rhythm was mostly consisting of 9-10 Hz alpha frequency in the posterior occipital leads. No obvious asymmetry is seen. Photic stimulation was performed with a minimal driving response seen. No pathological waves were elicited. Hyperventilation was not performed. Occasional movement and muscle artifacts are seen. The patient remains awake throughout the tracing. No epileptiform discharges were seen. Her EKG lead showed a regular rate and rhythm. INTERPRETATION: This awake EEG can be considered within normal limits. There is no asymmetry seen. No epileptiform discharges were noticed. The absence of epileptiform discharges does not rule out the diagnosis of epilepsy, therefore clinical correlation is recommended. MMCYNTHIAL / IJRachel: [id number] /
== END 2016-11-22 17:00 | disposition home or self-care (01) ==
LOC: EC 14:32 → 3OBS 18:50
PROVIDERS: ADMIT Hospitalist; ATTEND Hospitalist
DX: G45.4 Transient global amnesia (principal); I10 Essential (primary) hypertension; F17.200 Nicotine dependence, unspecified, uncomplicated; J30.2 Other seasonal allergic rhinitis; I71.2 Thoracic aortic aneurysm, without rupture; F41.9 Anxiety disorder, unspecified; F32.9 Major depressive disorder, single episode, unspecified; Z72.820 Sleep deprivation; Z79.890 Hormone replacement therapy; Z79.51 Long term (current) use of inhaled steroids; Z79.899 Other long term (current) drug therapy; Z91.02 Food additives allergy status; Z88.9 Allergy status to unspecified drugs, medicaments and biological substances
CPT/HCPCS: 96374; 99285; 36415; 95819; 93005; 93306; 80061; 80053; 84443; 82607; 82550; 82553; 82746; 84484; 85025; 85610; 85730; 81003; 83090; 82306; 80306; 71020; 93880; 70450; 71260; 70553; G0378 ×3; J2060; Q9967; A9581

== ENCOUNTER → 2018-03-12 | Outpatient (CLI) | payer OTHER ==
--- NOTE | 2018-03-12 15:19 | CT ---
EXAMINATION TYPE: CT sinus wo con DATE OF EXAM: 03/12/2018 COMPARISON: November 22, 2013 HISTORY: sinus congestion, headaches, ringing in ears CT DLP: [address] of the paranasal sinuses was performed in the axial and coronal planes. Bone and soft tissue settings are submitted. The paranasal sinuses demonstrate normal aeration and development. There is evidence of medial maxill breanne antrectomy. The paranasal sinuses are free of mucosal thickening or air fluid level. The osteal meatal units are patent bilaterally. The nasal septum is midline. No bony destructive changes are seen within the field of view. IMPRESSION: Postoperative changes of medial maxillary antrectomy. Otherwise unremarkable study.
== END ==
LOC: RADCTMAIN 14:53
PROVIDERS: ATTEND Otolaryngology
DX: J32.9 Chronic sinusitis, unspecified (principal); Z98.890 Other specified postprocedural states
CPT/HCPCS: 70486

== ENCOUNTER → 2018-04-26 | Outpatient (CLI) | payer OTHER ==
--- NOTE | 2018-04-27 09:54 | MM ---
Reason for exam: screening (asymptomatic). Last mammogram was performed 1 year and 2 months ago. History: Patient is postmenopausal. Taking estrogen beginning at age 57. Took progesterone for 3 years. Physical Findings: A clinical breast exam by your physician is recommended on an annual basis and results should be correlated with mammographic findings. MG 3D Screening Mammo W/Cad Bilateral CC and MLO view(s) were taken. Prior study comparison: March 10, 2017, bilateral MG 3d screening mammo w/cad. August 07, 2015, bilateral MG 3d screening mammo w/cad. The breast tissue is heterogeneously dense. This may lower the sensitivity of mammography. Small stellate density lower inner left breast anterior third position. This finding is changed when compared with previous exams. ASSESSMENT: Incomplete: need additional imaging evaluation, BI-RAD 0 RECOMMENDATION: Special view mammogram of the left breast. If lesion persists on supplemental views, image directed ultrasound is recommended. [facility] will attempt to contact patient to return for supplemental views and ultrasound if indicated.
== END | disposition home or self-care (01) ==
LOC: RADMAMWWP 12:36
PROVIDERS: ATTEND Family Medicine
DX: Z12.31 Encounter for screening mammogram for malignant neoplasm of breast (principal)
CPT/HCPCS: 77063; 77067

== ENCOUNTER → 2018-05-05 | Outpatient (CLI) | payer OTHER ==
--- NOTE | 2018-05-06 07:53 | MM ---
Reason for exam: additional evaluation requested from abnormal screening. Last mammogram was performed less than 1 month ago. History: Patient is postmenopausal. Taking estrogen for 6 months beginning at age 57. Taking progesterone for 3 years. Physical Findings: Nurse did not find any significant physical abnormalities on exam. MG 3D Work Up W/Cad LT Spot compression CC, spot compression MLO, and LM view(s) were taken of the left breast. Prior study comparison: April 26, 2018, bilateral MG 3d screening mammo w/cad. March 10, 2017, bilateral MG 3d screening mammo w/cad. There is no discrete abnormality including area of concern. These results were verbally communicated with the patient and result sheet given to the patient on 05/05/18. ASSESSMENT: Negative, BI-RAD 1 RECOMMENDATION: Return to routine screening mammogram schedule for both breasts.
== END | disposition home or self-care (01) ==
LOC: RADMAMWWP 14:41
PROVIDERS: ATTEND Family Medicine
DX: R92.8 Other abnormal and inconclusive findings on diagnostic imaging of breast (principal)
CPT/HCPCS: 77061; 77065

== ENCOUNTER → 2019-05-12 | Outpatient (CLI) | payer OTHER ==
--- NOTE | 2019-05-12 10:20 | MM ---
Reason for exam: additional evaluation requested from abnormal screening. Last mammogram was performed less than 1 month ago. History: Patient is postmenopausal. Taking estrogen for 6 months beginning at age 57. Taking progesterone for 3 years. Physical Findings: Nurse did not find any significant physical abnormalities on exam. MG 3D Work Up W/Cad RT ML, spot compression MLO, and spot compression CC view(s) were taken of the right breast. Prior study comparison: April 28, 2019, bilateral MG 3d screening mammo w/cad. May 05, 2018, left breast MG 3d work up w/cad LT. There are scattered fibroglandular densities. The right upper outer quadrant focal asymmetry disperses in additional views. These results were verbally communicated with the patient and result sheet given to the patient on 05/12/19. ASSESSMENT: Negative, BI-RAD 1 RECOMMENDATION: Return to routine screening mammogram schedule for both breasts.
== END | disposition home or self-care (01) ==
LOC: RADMAMWWP 08:50
PROVIDERS: ATTEND Family Medicine
DX: R92.8 Other abnormal and inconclusive findings on diagnostic imaging of breast (principal)
CPT/HCPCS: 77061; 77065

== ENCOUNTER → 2020-02-28 | Outpatient (CLI) | payer OTHER | END | disposition home or self-care (01) | LOC: LABWHC1 11:45 | PROVIDERS: ATTEND Nurse Practitioner Family | DX: J34.89 Other specified disorders of nose and nasal sinuses (principal); R51.9 Headache, unspecified; R83.0 Abnormal level of enzymes in cerebrospinal fluid; R53.81 Other malaise; R53.83 Other fatigue; R68.83 Chills (without fever) | CPT/HCPCS: U0003; C9803 ==

== ENCOUNTER → 2020-10-12 | Outpatient (CLI) | payer OTHER ==
--- NOTE | 2020-10-18 11:14 | MM ---
Reason for exam: screening (asymptomatic). Last mammogram was performed 1 year and 5 months ago. History: Patient is postmenopausal. Took hormonal contraceptives for 4 years. Taking estrogen for 6 months beginning at age 57. Taking progesterone for 3 years. Physical Findings: A clinical breast exam by your physician is recommended on an annual basis and results should be correlated with mammographic findings. MG 3D Screening Mammo W/Cad Bilateral CC and MLO view(s) were taken. Prior study comparison: April 28, 2019, bilateral MG 3d screening mammo w/cad. April 26, 2018, bilateral MG 3d screening mammo w/cad. March 10, 2017, bilateral MG 3d screening mammo w/cad. There are scattered fibroglandular densities. No significant changes when compared with prior studies. ASSESSMENT: Negative, BI-RAD 1 RECOMMENDATION: Routine screening mammogram of both breasts in 1 year.
== END | disposition home or self-care (01) ==
LOC: RADMAMWWP 13:34
PROVIDERS: ATTEND Obstetrics & Gynecology
DX: Z12.31 Encounter for screening mammogram for malignant neoplasm of breast (principal); Z78.0 Asymptomatic menopausal state
CPT/HCPCS: 77063; 77067

== ENCOUNTER → 2021-10-14 | Outpatient (CLI) | payer OTHER ==
--- NOTE | 2021-10-15 09:33 | MM ---
Reason for Exam: Screening (asymptomatic). Last screening mammogram was performed 12 month(s) ago. Patient History: Menarche at age 13. First Full-Term at age 23. Postmenopausal. Currently using Estrogen, for 6 months. Currently using Progesterone, for 3 years. Patient used Hormonal Contraceptives for 4 years. Risk Values: Loni 5 year model risk: 1.3%. NCI Lifetime model risk: 6.4%. Prior Study Comparison: 04/15/1996 Screening Mammogram, Unknown. 03/17/2012 Bilateral Screening Mammogram, [facility]. 08/07/2015 Bilateral Screening Mammogram, [facility]. 04/26/2018 Bilateral Screening Mammogram, [facility]. 04/28/2019 Bilateral Screening Mammogram, [facility]. 05/12/2019 Right Diagnostic Mammogram, [facility]. 10/12/2020 Bilateral Screening Mammogram, [facility]. Tissue Density: The breast tissue is heterogeneously dense. This may lower the sensitivity of mammography. Findings: Analyzed By CAD. There is no suspicious group of microcalcifications or new suspicious mass in either breast. Benign calcification noted. Stable asymmetric density upper outer margin left breast. Overall Assessment: Benign, BI-RAD 2 Management: Screening Mammogram of both breasts in 1 year. A clinical breast exam by your physician is recommended on an annual basis and results should be correlated with mammographic findings. Electronically signed and approved by: Manoj Johnson M.D. Radiologis
== END | disposition home or self-care (01) ==
LOC: RADMAMWWP 14:00
PROVIDERS: ATTEND Obstetrics & Gynecology
DX: Z12.31 Encounter for screening mammogram for malignant neoplasm of breast (principal); Z78.0 Asymptomatic menopausal state
CPT/HCPCS: 77063; 77067

== ENCOUNTER → 2022-10-21 | Outpatient (CLI) | payer OTHER ==
--- NOTE | 2022-10-22 08:07 | MM ---
Reason for Exam: Screening (asymptomatic). Last mammogram was performed 1 year(s) and 1 month(s) ago. Patient History: Menarche at age 13. First Full-Term at age 23. Postmenopausal. Currently using Estrogen, for 6 months. Currently using Progesterone, for 3 years. Patient used Hormonal Contraceptives for 4 years. Risk Values: Loni 5 year model risk: 1.4%. NCI Lifetime model risk: 6.2%. Prior Study Comparison: 05/12/2019 Right Diagnostic Mammogram, [facility]. 10/12/2020 Bilateral Screening Mammogram, [facility]. 10/14/2021 Bilateral MG 3D screening mammo w/cad, [facility]. Tissue Density: The breast tissue is heterogeneously dense. This may lower the sensitivity of mammography. Findings: Analyzed By CAD. There is no suspicious group of microcalcifications or new suspicious mass in either breast. Benign calcifications noted. Stable asymmetric density upper outer margin of the left breast. Overall Assessment: Benign, BI-RAD 2 Management: Screening Mammogram of both breasts in 1 year. A clinical breast exam by your physician is recommended on an annual basis and results should be correlated with mammographic findings. Note on Loni scores and lifetime risk: 1. A Loni score greater than 3% is considered moderate risk. If this is the case, consider specialist referral to assess eligibility for a risk reducing agent. If overall lifetime risk for the development of breast cancer is 20% or higher, the patient may qualify for future screening with alternating mammogram and breast MRI. Electronically signed and approved by: Guero Stanford D.O.
== END | disposition home or self-care (01) ==
LOC: RADMAMWWP 16:17
PROVIDERS: ATTEND Obstetrics & Gynecology
DX: Z12.31 Encounter for screening mammogram for malignant neoplasm of breast (principal); Z78.0 Asymptomatic menopausal state
CPT/HCPCS: 77063; 77067

== ENCOUNTER → 2024-01-01 | Outpatient (CLI) | payer OTHER ==
--- NOTE | 2024-01-01 12:01 | BD ---
EXAMINATION TYPE: Axial Bone Density DATE OF EXAM: 01/01/2024 CLINICAL HISTORY: 63 years old Female. ICD-10 CODE: N951 POST MICHELLE Height: 5 ft 3 in Weight: 162 FRAX RISK QUESTIONS: Alcohol (3 or more units per day): no Family History (Parent hip fracture): no Glucocorticoids (More than 3mos): no (Ex: prednisone, prednisolone, methylprednisolone, dexamethasone, and hydrocortisone). History of Fracture in Adulthood: no Secondary Osteoporosis: 1. Type 1 Diabetes: no 2. Hyperthyroidism: no 3. Menopause before 45: no 4. Malnutrition: no 5. Chronic liver disease: no Rheumatoid Arthritis: no Current Tobacco Use: no RISK FACTORS HISTORY OF: Surgery to Spine/Hip(right/left)/Wrist (right/left): no MEDICATIONS: Thyroid Medications: none Osteoporosis Medications: none EXAM MEASUREMENTS: Bone mineral densitometry was performed using the [employer]. Bone mineral density as measured about the Lumbar spine is: ----- L1-L4(G/cm2): 1.379 T Score Values are as follows: ----- L1: 1.5 ----- L2: 1.2 ----- L3: 1.1 ----- L4: 2.5 ----- L1-L4: 1.7 Z Score Values are as follows: ----- L1: 2.6 ----- L2: 2.3 ----- L3: 2.3 ----- L4: 3.7 ----- L1-L4: 2.8 baseline Bone mineral density about the R hip (g/cm2): 0.906 Bone mineral density about the L hip (g/cm2): 0.904 T Score values are as follows: -----R Neck: -1.0 -----L Neck: -1.0 -----R Total: -0.3 -----L Total: 0.0 Z Score values are as follows: -----R Neck: 0.2 -----L Neck: 0.2 -----R Total: 0.6 -----L Total: 0.9 baseline FRAX%s: The graph provided illustrates a 7.5 % chance for a major osteoporotic fx and a 0.5 % chance for the hips probability for fx in 10 years time. IMPRESSION: Normal (Values between +1 and -1 indicate normal bone mass). Consider repeating this study in 5 year s or sooner if there is some new clinical indication. NOTE: T-SCORE=SD OF THE YOUNG ADULT MEAN. [facility], , 01/01/2024 11:59 AM
[2024-01-01 15:52] LABS: Estradiol 25.3 pg/mL
[2024-01-01 16:36] LABS: Follicle Stimulating Hormone 46.2 mIU/mL
--- NOTE | 2024-01-04 08:26 | MM ---
Reason for Exam: Screening (asymptomatic). Last mammogram was performed 1 year(s) and 2 month(s) ago. Patient History: Menarche at age 13. First Full-Term at age 23. Postmenopausal. Patient has history of breast feeding. Currently using Estrogen, for 6 months. Currently using Progesterone, for 3 years. Patient used Hormonal Contraceptives for 4 years. Risk Values: Loni 5 year model risk: 1.4%. NCI Lifetime model risk: 6.0%. Prior Study Comparison: 03/10/2017 Bilateral Screening Mammogram, [facility]. 04/26/2018 Bilateral Screening Mammogram, [facility]. 05/05/2018 Left Diagnostic Mammogram, [facility]. 04/28/2019 Bilateral Screening Mammogram, [facility]. 05/12/2019 Right Diagnostic Mammogram, [facility]. 10/12/2020 Bilateral Screening Mammogram, [facility]. 10/14/2021 Bilateral MG 3D screening mammo w/cad, [facility]. 10/21/2022 Bilateral MG 3D screening mammo w/cad, [facility]. Tissue Density: There are scattered areas of fibroglandular density. Findings: Analyzed By CAD. Right breast: There is no suspicious group of microcalcifications or new suspicious mass. Left breast: There is no suspicious group of microcalcifications or new suspicious mass. Overall Assessment: Negative, BI-RAD 1 Management: Screening Mammogram of both breasts in [address] [facility] will attempt to contact patient to return for supplemental views and ultrasound if indicated. Patient should continue monthly self-breast exams. A clinical breast exam by your physician is recommended on an annual basis. This exam should not preclude additional follow-up of suspicious palpable abnormalities. Note on Loni scores and lifetime risk: 1. A Loni score greater than 3% is considered moderate risk. If this is the case, consider specialist referral to assess eligibility for a risk reducing agent. 2. If overall lifetime risk for the development of breast cancer is 20% or higher, the patient may qualify for future screening with alternating mammogram and breast MRI. [facility], , 01/04/2024 8:23 AM. Electronically signed and approved by: Rodger Herzog DO
== END | disposition home or self-care (01) ==
LOC: RADMAMWWP 09:05
PROVIDERS: ATTEND Obstetrics & Gynecology
CPT/HCPCS: 77063; 77067; 77080; 82670; 83001; 84144; 84403